=== PATIENT | female | born 1985 | race African-American/Black ===

== ENCOUNTER 2016-06-03 13:23 | Emergency (ER) | payer OTHER ==
[~2016-06-03] VITALS: Ht 170.2 cm; Wt 202.3 kg
[~2016-06-03 13:23] MED LIST: BACL10TA4 PO; HYDR-4446 PO; ORE25 PO
[2016-06-03 13:38] VITALS: BP 116/41
--- NOTE | 2016-06-03 13:57 | NUR ---
Patient ambulated to bed 07.
--- NOTE | 2016-06-03 14:01 | NUR ---
PATIENT PRESENTS TO ED WITH C/O LEFT EAR PAIN. PIECE OF COCHLEAR IMPLANT BROKE OFF. AND C/O SORE THROAT . DENIES N/V/D; SKIN IS PINK/WARM/DRY; AAOX4 WITH EVEN AND STEADY GAIT; LUNGS CLEAR BL; HR EVEN AND REGULAR; PT DENIES ANY FEVER, CP, SOB, OR COUGH AT THIS TIME; PATIENT STATES PAIN OF 7/10 AT THIS TIME; VSS; PATIENT POSITIONED FOR COMFORT; HOB ELEVATED; BEDRAILS UP X2; BED DOWN. ER MD MADE AWARE OF PT STATUS.
--- NOTE | 2016-06-03 15:21 | NUR ---
Dr. Neves evaluating patient at bedside.
[2016-06-03 15:42] VITALS: BP 121/51
--- NOTE | 2016-06-03 15:42 | NUR ---
Patient discharged with v/s stable. Written and verbal after care instructions given and explained. Patient alert, oriented and verbalized understanding of instructions. Ambulatory with steady gait. All questions addressed prior to discharge. ID band removed. Patient advised to follow up with PMD. Rx of MOTRIN, PREDNISONE given. Patient educated on indication of medication including possible reaction and side effects. Opportunity to ask questions provided and answered.
== END 2016-06-03 15:42 | disposition home or self-care (01) ==
LOC: MED 13:23
DX: H92.02 Otalgia, left ear (principal); J02.9 Acute pharyngitis, unspecified; J45.909 Unspecified asthma, uncomplicated; I10 Essential (primary) hypertension; Z96.20 Presence of otological and audiological implant, unspecified; Z91.041 Radiographic dye allergy status; Z91.040 Latex allergy status
CPT/HCPCS: 99283

== ENCOUNTER 2019-05-30 01:40 | Emergency (ER) | payer OTHER ==
[~2019-05-30] VITALS: Ht 167.6 cm; Wt 210.9 kg
[~2019-05-30 01:40] MED LIST changes: +ACET-8386 PO; -HYDR-4446 PO
--- NOTE | 2019-05-30 01:58 | NUR ---
PT TAKEN TO BED 11
--- NOTE | 2019-05-30 01:59 | NUR ---
Dr. Samaniego examining patient.
--- NOTE | 2019-05-30 02:03 | NUR ---
PT EXAMINED AND DISCHARGED BY , NO NURSING INTERVENTIONS PROVIDED.
[2019-05-30 02:05] VITALS: BP 114/85
== END 2019-05-30 02:05 | disposition home or self-care (01) ==
LOC: MED 01:40
DX: J45.909 Unspecified asthma, uncomplicated (principal); Z76.0 Encounter for issue of repeat prescription
CPT/HCPCS: 99281

== ENCOUNTER 2019-06-30 01:27 | Emergency (ER) | payer OTHER ==
[~2019-06-30] VITALS: Ht 167.6 cm; Wt 192.8 kg
[2019-06-30 01:30] VITALS: BP 162/91
--- NOTE | 2019-06-30 01:42 | NUR ---
PT IN WHEELCHAIR TO ER BED 02
--- NOTE | 2019-06-30 02:10 | NUR ---
PT HAS HX OF ASTHMA, STARTED HAVING NONPRODUTIVE COUGH AND WHEEZING AROUND 11PM, 06/29/19. TRIED INHALER WITH NO RESULTS. JUST RECEIVED A NEUBULIZER, HOWEVER, DOES NOT HAVE ANY MEDS FOR IT AT THIS TIME. O2 SAT AT 93%, PT ABLE TO SPEAK FULL SENTENCES, NO DISTRESS NOTED AT THIS TIME, PT PLACED ON O2 @ 3 L. BED IN LOWEST POSITION AND SIDE RAIL UP X 1 ALLERGIES - IBUBROFEN, IODINE, LATEX MED HX - ASTHMA, SLEEP APNEA
[2019-06-30] MEDS ORDERED: ALBUTEROL SULFATE/IPRATROPIU 3 ML SOL IH ONE (02:30)
--- NOTE | 2019-06-30 02:42 | NUR ---
RESPIRATORY AT BEDSIDE FOR BREATHING TREATMENT
--- NOTE | 2019-06-30 02:47 | NUR ---
PT REFUSING BLOOD DRAW FROM LAB, MD SHAH AWARE.
--- NOTE | 2019-06-30 03:23 | NUR ---
PT STATES SHE FEELS BETTER AFTER HER BREATHING TREATMENT, NO WHEEZING OR COUGHING.
[2019-06-30 03:25] VITALS: BP 162/91
--- NOTE | 2019-06-30 03:35 | NUR ---
Patient discharged with v/s stable. Written and verbal after care instructions given and explained. Patient alert, oriented and verbalized understanding of instructions. Wheel Chair Assisted with to home. All questions addressed prior to discharge. ID band removed. Patient advised to follow up with PMD. Rx of ADVAIR DISKUS, ALBUTEROL, PREDNISONE given. Patient educated on indication of medication including possible reaction and side effects. Opportunity to ask questions provided and answered.
== END 2019-06-30 03:35 | disposition home or self-care (01) ==
LOC: MED 01:27
DX: J45.901 Unspecified asthma with (acute) exacerbation (principal); G47.30 Sleep apnea, unspecified; E66.01 Morbid (severe) obesity due to excess calories; Z68.44 Body mass index [BMI] 60.0-69.9, adult; Z79.899 Other long term (current) drug therapy; Z88.8 Allergy status to other drugs, medicaments and biological substances; Z91.040 Latex allergy status
CPT/HCPCS: 94640; 99283